=== PATIENT | female | born 1965 | race Caucasian/White ===

== ENCOUNTER 2025-05-07 09:23 | Emergency (ER) | payer MEDICAID ==
[~2025-05-07] VITALS: Ht 162.6 cm; Wt 72.7 kg
[2025-05-07] MEDS ORDERED: AMOX500C2 PO (10:16)
--- NOTE | 2025-05-07 10:17 | Physician Documentation ---
History of Present Illness ~ Chief Complaint: Mouth Pain Stated Complaint: MOUTH PAIN Time Seen by MD: 09:28 Source: patient Mode of Arrival: POV Exam Limitations: no limitations HPI 59-year-old female with chief complaint pain on her gums that started 10 days ago when she got fitted with new dentures. She where the dentures for eight days and took them out four days ago. She switched back to her old dentures because her old dentures fit better. She states that the pain is worse when she has the dentures in. She is not wearing the dentures at night. She is requesting a prescription for antibiotics because she thinks that the sores that were created from the dentures will heal faster if she gets antibiotics and she is concerned about an infection because she states that her left cheek is slightly swollen. No fever, chills, sore throat, headache, nausea, chest pain. Medication Reconciliation Allergies: Coded Allergies: No Known Allergies (Unverified , 05/07/25) Past Medical History Past Medical History: No Pertinent History Past Surgical History: noncontributory Review of Systems All Other Systems at this time: Reviewed and Negative Physical Exam Vital Signs: Temperature: 98.1, Source: Temporal, Heart Rate: 74, Respiratory Rate: 18, BP: 135/86, Pulse Oximetry: 99, Weight: 72.650 Oxygen Flow Rate: 0 Physical Exam General Appearance: Alert, WD/WN. NAD. HEENT: NCAT, PERRL, EOMI. Very slight swelling of left cheek, gingiva slightly inflamed on the left upper mandible, sore on palate about 3 mm, posterior pharyngeal wall normal Neck: Supple, trachea midline. No cervical lymphadenopathy Cardiovascular: RRR. No m/r/g. Lungs: CTAB. Breathing unlabored Extremities: Normal inspection. No edema. Skin: Warm/dry, normal color Neurological: Alert and oriented x4, normal gait. Psychiatric: Affect congruent with mood. Progress Progress Note Findings on exam consistent with gingivitis likely triggered from wearing dentures that were not fitting correctly. No evidence of abscess. Results/Orders Results/Orders Vital Signs 05/07/25 09:25 Temp 98.1 Pulse 74 Resp 18 B/P (MAP) 135/86 Pulse Ox 99 O2 Flow Rate 0 Medical Decision Making Tooth Diff. Dx: Considerations: Include: Facial cellulitis Throat Diff Dx: Considerations: Include: Esophageal candidiasis, Hand foot mouth disease, Herpangina, Herpetic stomatitis, Herpes simplex, Peritonsillar abscess, Peritonsillar cellulitis, Pharyngitis-strepococcal, Pharyngitis-viral, Thrush, Other Departure Time of Disposition: 10:15 Disposition: 01 HOME / SELF CARE / HOMELESS Impression: Primary Impression: Gingivitis Additional Impression: Poorly fitting dentures Condition: Fair Discharge Instructions: Mouth Injury, Generic Additional Instructions: Amoxicillin sent to the pharmacy follow up with your dentist on Friday about the dentures which do not appear to be fitting properly. I also recommend you not wear any dentures until your mouth has healed like we discussed. Referrals: NO PRIMARY CARE PROVIDER (PCP) Prescriptions Amoxicillin Trihydrate* (Amoxicillin*) 500 Mg Capsule 1 CAP PO Q8H for 10 Days, #30 CAP Prov: EDGAR HAMMONDS 05/07/25 Education Educated: Patient Educated regarding: diagnosis, treatment, need for follow up Signature Scribe Signature: x Attestation: EDGAR Wilson May 07, 2025 10:17
[2025-05-07 10:29] VITALS: BP 130/80; PULSE 75; RESP 16; TEMP 98; O2SAT 99
== END 2025-05-07 10:30 | disposition home or self-care (01) ==
LOC: ER 09:24
DX: K05.10 Chronic gingivitis, plaque induced (principal)
CPT/HCPCS: 99283